=== PATIENT | male | born 1950 | race Caucasian/White ===

== ENCOUNTER → 2018-01-02 | Outpatient (CLI) | payer MEDICARE | END | disposition home or self-care (01) | LOC: KCIC MRI 11:39 | DX: M48.061 Spinal stenosis, lumbar region without neurogenic claudication (principal); M51.36 Other intervertebral disc degeneration, lumbar region | CPT/HCPCS: 72148 ==

== ENCOUNTER → 2018-01-11 | Outpatient (CLI) | payer MEDICARE ==
[2018-01-11 11:18] LABS: ADD MAN DIFF? NO
[2018-01-11 11:50] LABS: ALBUMIN 3.8 g/dL (3.4-5.0); ALK PHOS 48 U/L (46-116); ALT (SGPT) 71 U/L (16-63); ANION GAP 7 (6-14); AST (SGOT) 36 U/L (15-37); BLOOD UREA NITROGEN 15 mg/dL (8-26); BUN/CREATININE RATIO 15 (6-20); CALCIUM 8.9 mg/dL (8.5-10.1); CARBON DIOXIDE 25 mmol/L (21-32); CHLORIDE 105 mmol/L (98-107); GFR 74.3; GLUCOSE 136 mg/dL (70-99); SODIUM 137 mmol/L (136-145); TOTAL BILIRUBIN 1.6 mg/dL (0.2-1.0); TOTAL PROTEIN 7.5 g/dL (6.4-8.2)
[2018-01-11 12:00] LABS: BASO # 0.1 x10^3/uL (0.0-0.2); BASO % 1 % (0-3); EOS # 0.2 x10^3/uL (0.0-0.7); EOS % 3 % (0-3); HEMATOCRIT 45.9 % (39.0-53.0); HEMOGLOBIN 15.9 g/dL (13.0-17.5); LYMPH # 1.8 x10^3/uL (1.0-4.8); LYMPH % 27 % (24-48); MEAN CORPUSCULAR HEMOGLOBIN 32 pg (25-35); MEAN CORPUSCULAR HGB CONC 35 g/dL (31-37); MEAN CORPUSCULAR VOLUME 92 fL (79-100); MONO # 0.7 x10^3/uL (0.0-1.1); MONO % 11 % (0-9); NEUT % 59 % (31-73); PLATELET COUNT 197 x10^3/uL (140-400); RED BLOOD COUNT 4.99 x10^6/uL (4.30-5.70); RED CELL DISTRIBUTION WIDTH 13.5 % (11.5-14.5); WHITE BLOOD COUNT 6.7 x10^3/uL (4.0-11.0)
[2018-01-11 22:15] LABS: MRSA BY PCR Negative (Negative)
== END | disposition home or self-care (01) ==
LOC: SURGPAT 10:13
DX: Z01.818 Encounter for other preprocedural examination (principal); M48.061 Spinal stenosis, lumbar region without neurogenic claudication; M54.16 Radiculopathy, lumbar region; I44.4 Left anterior fascicular block; R94.31 Abnormal electrocardiogram [ECG] [EKG]
CPT/HCPCS: 36415; 80053; 85025; 87641; 93005

== ENCOUNTER 2018-01-15 07:02 | Day surgery (SDC) | payer MEDICARE ==
[~2018-01-15 07:02] MED LIST: BACITRACIN 50,000 UNIT in IV NORMAL SALINE 1000ML BAG 1,000 ML IRR; BUPIVAC MPF-EPI 0.5%-1:200000 30 ML VIAL. INJ; DEXAMETHASONE SOD PHOS 20 MG/5 ML VIAL.; LIDOCAINE 1% PF 2 ML VIAL. ID; LIDOCAINE 2% PF Vial for OR 5 ML VIAL.; MORPHINE SULFATE 2 MG/ML DISP.SYRIN. IV; ONDANSETRON PF 4 MG/2 ML VIAL.; ONDANSETRON PF 4 MG/2 ML VIAL. IV; PHENYLEPHRINE in 0.9% NACL PF 1 MG/10 ML SYRINGE. IV; PROCHLORPERAZINE 10 MG/2 ML VIAL. IV; PROPOFOL 20 ML IV; PROPOFOL 50 ML IV; REMIFENTANIL 2 MG VIAL. IV; ROCURONIUM 50 MG/5 ML VIAL.; fentaNYL PF VIAL 100 MCG/2 ML VIAL IV
[2018-01-15] MEDS: IV RINGERS,LACTATED 1000ML 1,000 ML IV (07:54)
[2018-01-15] MEDS ORDERED: REMIFENTANIL 2 MG VIAL. IV (07:56)
[2018-01-15] MEDS ORDERED: fentaNYL PF VIAL 100 MCG/2 ML VIAL (07:58)
[2018-01-15] MEDS ORDERED: MIDAZOLAM HCL/PF 2 MG/2 ML VIAL. (07:58)
[2018-01-15] MEDS ORDERED: PHENYLEPHRINE 10 MG/ML VIAL. (08:02)
[2018-01-15] MEDS ORDERED: GLYCOPYRROLATE 1 MG/5 ML VIAL. (09:20)
[2018-01-15] MEDS: THROMBIN TOPICAL 20,000 UNIT SPRAY.SYRN KIT TP (09:32)
[2018-01-15] MEDS: GELATIN SPONGE SIZE 100. (09:32)
[2018-01-15] MEDS: BUPIVAC MPF-EPI 0.5%-1:200000 30 ML VIAL. INJ (09:32)
[2018-01-15] MEDS: KETOROLAC 60 MG/2 ML INJ FOR OR. (09:32)
[2018-01-15] MEDS: BACITRACIN 50,000 UNIT in IV NORMAL SALINE 1000ML BAG 1,000 ML IRR (09:32)
[2018-01-15] MEDS ORDERED: PROPOFOL 50 ML IV (09:52)
[2018-01-15] MEDS ORDERED: ONDANSETRON PF 4 MG/2 ML VIAL. (11:03)
[2018-01-15] MEDS ORDERED: DESFLURANE > 120 MINUTES IH (11:03)
[2018-01-15] MEDS: HYDROcodone/APAP 7.5/325MG 1 TAB TABLET PO (11:49)
[2018-01-15] MEDS ORDERED: ceFAZolin 2GM PREMIX 2 GM/50 ML BAG IV (12:00)
[2018-01-15] MEDS ORDERED: HYDROcodone/APAP 5/325MG 1 TAB TABLET (12:56)
[2018-01-15] MEDS: HYDROcodone/APAP 5/325MG 1 TAB TABLET PO (13:04)
== END 2018-01-15 13:29 | disposition home or self-care (01) ==
LOC: SURG 07:02
DX: M48.061 Spinal stenosis, lumbar region without neurogenic claudication (principal); M54.16 Radiculopathy, lumbar region; E78.00 Pure hypercholesterolemia, unspecified; Z98.42 Cataract extraction status, left eye; Z98.41 Cataract extraction status, right eye; Z96.1 Presence of intraocular lens; I42.9 Cardiomyopathy, unspecified; Z85.46 Personal history of malignant neoplasm of prostate; M19.90 Unspecified osteoarthritis, unspecified site; Z98.890 Other specified postprocedural states; Z90.79 Acquired absence of other genital organ(s); I11.9 Hypertensive heart disease without heart failure; Z83.3 Family history of diabetes mellitus; Z82.0 Family history of epilepsy and other diseases of the nervous system; Z82.49 Family history of ischemic heart disease and other diseases of the circulatory system; Z72.89 Other problems related to lifestyle; Z79.82 Long term (current) use of aspirin; Z79.899 Other long term (current) drug therapy
CPT/HCPCS: 63030; 76000; 88304; 88311; 97162-GP; 97530-GP; A7015; G8978-CJ-GP; G8979-CJ-GP; G8980-CJ-GP; J0690; J1100; J1885; J2001; J2250; J2370; J2405; J2704; J3010; J3490; J7030

== ENCOUNTER → 2018-07-09 | Outpatient (CLI) | payer MEDICARE ==
[2018-01-15 12:15] VITALS: BP 163/78
[~2018-07-09] MED LIST changes: +ASPI-612 PO; -BACITRACIN 50,000 UNIT in IV NORMAL SALINE 1000ML BAG 1,000 ML IRR; -BUPIVAC MPF-EPI 0.5%-1:200000 30 ML VIAL. INJ; +CARV3.1210 PO; +CETI10TA16 PO; -DEXAMETHASONE SOD PHOS 20 MG/5 ML VIAL.; +DOCU-109 PO; +HYDR-3164 PO; +IBUP-1027 PO; -LIDOCAINE 1% PF 2 ML VIAL. ID; -LIDOCAINE 2% PF Vial for OR 5 ML VIAL.; +LISI-334 PO; +METH-38 PO; -MORPHINE SULFATE 2 MG/ML DISP.SYRIN. IV; -ONDANSETRON PF 4 MG/2 ML VIAL.; -ONDANSETRON PF 4 MG/2 ML VIAL. IV; -PHENYLEPHRINE in 0.9% NACL PF 1 MG/10 ML SYRINGE. IV; -PROCHLORPERAZINE 10 MG/2 ML VIAL. IV; -PROPOFOL 20 ML IV; -PROPOFOL 50 ML IV; -REMIFENTANIL 2 MG VIAL. IV; -ROCURONIUM 50 MG/5 ML VIAL.; +SIMV40TA3 PO; -fentaNYL PF VIAL 100 MCG/2 ML VIAL IV
[2018-07-09 09:19] LABS: BASO # 0.1 x10^3/uL (0.0-0.2); BASO % 1 % (0-3); EOS # 0.2 x10^3/uL (0.0-0.7); EOS % 3 % (0-3); HEMATOCRIT 46.5 % (39.0-53.0); HEMOGLOBIN 15.7 g/dL (13.0-17.5); LYMPH # 2.4 x10^3/uL (1.0-4.8); LYMPH % 36 % (24-48); MEAN CORPUSCULAR HEMOGLOBIN 31 pg (25-35); MEAN CORPUSCULAR HGB CONC 34 g/dL (31-37); MEAN CORPUSCULAR VOLUME 92 fL (79-100); MONO # 0.8 x10^3/uL (0.0-1.1); MONO % 11 % (0-9); NEUT # 3.4 x10^3uL (1.8-7.7); NEUT % 50 % (31-73); PLATELET COUNT 181 x10^3/uL (140-400); RED BLOOD COUNT 5.05 x10^6/uL (4.30-5.70); RED CELL DISTRIBUTION WIDTH 13.3 % (11.5-14.5); WHITE BLOOD COUNT 6.8 x10^3/uL (4.0-11.0)
[2018-07-09 09:22] LABS: ALBUMIN 3.7 g/dL (3.4-5.0); CALCIUM 9.5 mg/dL (8.5-10.1); GFR 74.3; POTASSIUM 4.8 mmol/L (3.5-5.1)
[2018-07-09 09:28] LABS: PROTHROMBIN TIME PATIENT 13.5 SEC (11.7-14.0)
[2018-07-09 10:09] LABS: BILIRUBIN,URINE NEGATIVE (NEG); CLARITY,URINE CLEAR; COLOR,URINE YELLOW; NITRITE,URINE NEGATIVE (NEG); PH,URINE 5.5; PROTEIN,URINE NEGATIVE (NEG-TRACE); UROBILINOGEN,URINE 0.2 mg/dL (0.2 mg/dL)
[2018-07-09 10:25] LABS: BACTERIA,URINE 0 /HPF (0-FEW); RBC,URINE 0 /HPF (0-2); SQUAMOUS EPITHELIAL CELL,UR OCC /LPF; WBC,URINE 0 /HPF (0-4)
--- NOTE | 2018-07-09 17:08 | RAD ---
CHEST PA LATERAL Clinical indications: PRE OP FOR HIP REPLACEMENT IN JULY 2018, HX OF HYPERTENSION the patient is 67 years old. COMPARISON: December 04, 2008. Findings: No acute lung infiltrate or pleural effusion or pulmonary edema or lung mass or pneumothorax is seen. The heart size, pulmonary vasculature, mediastinum and both keyon are unremarkable. There is a new finding of left lateral rib cage fractures involving the seventh and eighth ribs with associated pleural thickening. Impression: New finding of posterior left lateral rib cage fractures involving the seventh and eighth ribs with associated pleural thickening. Electronically signed by: Jayesh Arriola MD (07/09/2018 5:04 PM) [place] [id number]
== END | disposition home or self-care (01) ==
LOC: SURGPAT 13:07
PROVIDERS: ATTEND Orthopaedic Surgery
DX: Z01.818 Encounter for other preprocedural examination (principal); S22.42XA Multiple fractures of ribs, left side, initial encounter for closed fracture; M16.11 Unilateral primary osteoarthritis, right hip; I10 Essential (primary) hypertension; J92.9 Pleural plaque without asbestos; X58.XXXA Exposure to other specified factors, initial encounter; Y93.89 Activity, other specified; Y92.89 Other specified places as the place of occurrence of the external cause; Y99.8 Other external cause status
CPT/HCPCS: 36415; 71046; 80048; 81001; 82040; 85025; 85610; 85651; 85730; 87641

== ENCOUNTER → 2018-09-03 | Outpatient (CLI) | payer MEDICARE ==
[2018-08-02 08:10] VITALS: BP 121/72
[~2018-09-03] MED LIST changes: +TRAM50TA PO
[2018-09-03 09:28] LABS: PROTHROMBIN TIME PATIENT 22.3 SEC (11.7-14.0)
== END | disposition home or self-care (01) ==
LOC: LAB 09:02
PROVIDERS: ATTEND Orthopaedic Surgery
DX: I10 Essential (primary) hypertension (principal); E78.5 Hyperlipidemia, unspecified; Z79.01 Long term (current) use of anticoagulants; Z96.641 Presence of right artificial hip joint
CPT/HCPCS: 36415; 85610

== ENCOUNTER → 2021-08-10 | Outpatient (CLI) | payer MEDICARE ==
[2018-08-02 08:10] VITALS: BP 121/72
[~2021-08-10] MED LIST changes: -ASPI-612 PO; +ASPI-886 PO; -LISI-334 PO; +LISI20TA18 PO; +SIMV40TA18 PO; -SIMV40TA3 PO
--- NOTE | 2021-08-10 10:00 | KCIC ---
STUDY: MRI of the lumbar spine without contrast INDICATION: Spinal stenosis with radiculopathy. Previous surgery reportedly in 2018. The patient note s bilateral lower extremity numbness and weakness. COMPARISON: Lumbar spine MRI 01/02/2018 TECHNIQUE: Multiplanar MR imaging of the lumbar spine performed without the use of intravenous contra st. FINDINGS: The study is degraded on account of patient motion particularly the sagittal STIR sequence. Within normal limits signal and configuration of the conus medullaris which terminates at the mid asp ect of L1. Unremarkable cauda equina. Status post partial dorsal decompression at L4-L5. Multilevel discogenic arthrosis with disc space he ight loss greatest eccentric to the left at L3-L4 and more diffusely at L5-S1. Predominantly chronic degenerative endplate signal at multiple levels. No fracture or focally aggressive marrow signal abno rmality. Straightening of lumbar lordosis and degenerative dextrocurvature with the apex at L3. Overa ll vertebral body alignment has not significantly changed. Arthrosis is mild at the upper SI joints. Partially sacralized L5 vertebral body with a pseudoarticulation on the right. The localizer images reveal susceptibility artifact from a total right hip arthroplasty. Dorsal loren pinous and gluteal musculature fatty infiltration. T11-T12: Only evaluated on the sagittal sequences. Patent central canal and neural foramina. T12-L1: No significant disc bulge or facet arthrosis. Patent central canal and neural foramina. L1-L2: Mild disc bulge and endplate osteophytic ridging eccentric to the right. Mild facet arthrosis and ligamentum flavum hypertrophy. Patent central canal and neural foramina with a mid sagittal dimen sissy of 10 mm. L2-L3: Right eccentric disc bulge and endplate osteophytic ridging. Mild left more so than right face t arthrosis. Mild ligamentum flavum hypertrophy. Patent central canal with a mid sagittal dimension o f 11 mm. The neural foramina are patent. L3-L4: Generalized disc bulge and endplate osteophytic ridging eccentric to the left. Moderate right and severe left facet arthrosis. Ligamentum flavum hypertrophy. Patent central canal with a mid sagit ilene dimension of 11 mm. Left lateral recess stenosis, image 28 series 8. Minimal neural foraminal fernando nosis on the left. The right neural foramen is patent. L4-L5: Operative level. Generalized disc osteophyte complex eccentric to the right. Severe right more so than left facet arthrosis with what appears to be bony overgrowth at the anterior/superior margin of the right facet joint that contributes to severe right neural foraminal stenosis with compression of the exiting L4 nerve root as seen on image 13 series 5. Only mild neural foraminal stenosis on th e left. Right lateral recess stenosis. The central canal is decompressed/patent. L5-S1: Generalized disc osteophyte complex. Moderate facet arthrosis/hypertrophy. Small anteriorly di rected facet joint cyst on the left versus a facet osteophyte, image 20 series 6, measuring 6 x 5 mm. The central canal is patent. Mild right lateral recess stenosis. Severe left and mild right neural f oraminal stenosis. IMPRESSION: 1. Degraded study on account of patient motion. Diagnostic utility is mostly maintained. 2. Interval operative changes at L4-L5 with partial dorsal decompression. The central canal is paten t. At this level there is a right eccentric disc osteophyte complex and severe right more so than lef t facet arthrosis. Advanced bony overgrowth of the right facet joint results in severe neural foramin al stenosis with compression of the exiting right L4 nerve root (image 13 series 5). Stenosis of the right lateral recess as well. Mild neural foraminal stenosis on the left. 3. At L5-S1, moderate bilateral facet arthrosis with either a 6 x 5 mm facet joint cyst or anteriorl y directed spur at the left neural foramen (image 20 series 6). In conjunction with a disc osteophyte complex there is severe left neural foraminal stenosis. Patent central canal and mild neural foramin al stenosis on the right. 4. Left more so than right facet arthrosis at L3-L4 with left lateral recess stenosis and minimal le ft neural foraminal stenosis. Patent central canal and right neural foramen at this level. 5. Degenerative findings elsewhere as fully described on a level by level basis in the above report. Electronically signed by: JENELLE RAMIREZ MD (08/10/2021 9:57 AM) [facility]
== END ==
LOC: KCIC MRI 08:27
PROVIDERS: ATTEND Family Medicine
DX: M47.27 Other spondylosis with radiculopathy, lumbosacral region (principal); M51.16 Intervertebral disc disorders with radiculopathy, lumbar region; M48.061 Spinal stenosis, lumbar region without neurogenic claudication; M25.78 Osteophyte, vertebrae
CPT/HCPCS: 72148